=== PATIENT | male | born 1995 | race African-American/Black ===

== ENCOUNTER 2023-06-23 22:43 | Emergency (ER) | payer OTHER ==
[~2023-06-23] VITALS: Ht 167.6 cm; Wt 63.0 kg
[2023-06-23 22:49] VITALS: TEMP 98.1; O2SAT 100
[2023-06-23 23:56] VITALS: BP 136/93; PULSE 83; RESP 16
[2023-06-23] MEDS: KETOROLAC 15MG/ML VIAL IM ONE (23:56)
[2023-06-24] MEDS ORDERED: LIDO700A15 TP (00:07)
[2023-06-24] MEDS ORDERED: NAPR-1176 MT (00:07)
== END 2023-06-24 00:13 | disposition home or self-care (01) ==
LOC: ER 22:43
DX: S80.02XA Contusion of left knee, initial encounter (principal); V49.49XA Driver injured in collision with other motor vehicles in traffic accident, initial encounter; Y93.89 Activity, other specified; Y92.89 Other specified places as the place of occurrence of the external cause; Y99.8 Other external cause status
CPT/HCPCS: 99284; 72100; 73560; 96372; J1885